=== PATIENT | female | born 1935 ===

== ENCOUNTER 2021-05-24 11:30 | Inpatient (IN) | payer OTHER ==
[~2021-05-24] VITALS: Ht 149.9 cm; Wt 49.0 kg
[2021-05-24] MEDS ORDERED: XALATAN (15:23)
[2021-05-24] MEDS ORDERED: OMEPRAZOLE MAGN20 MG PO (15:23)
[2021-05-24] MEDS ORDERED: D3 + K2 DOTS 11 EACH PO (15:24)
[2021-05-24] MEDS ORDERED: NORVASC2.5 M1 PO (15:24)
[2021-05-27] MEDS ORDERED: LATANOPROST2.5 ML OP (08:13)
[2021-05-27] MEDS ORDERED: REFRESH OPTIVE10 ML (08:14)
[2021-05-29] MEDS ORDERED: INTESTINEX680 M1 PO (12:10)
[2021-05-29] MEDS ORDERED: HYOSCYAMINE0.125 M1 SL (12:10)
[2021-05-29] MEDS ORDERED: ULTRACET PO (12:11)
== END 2021-05-29 16:10 | disposition home or self-care (01) | DRG 331 ==
LOC: SURG 05-26 08:08 → O/R 05-26 08:08 → SURH 05-26 10:45 → SURG 05-26 15:26
PROVIDERS: ADMIT Surgery; ATTEND Surgery
PROC: 07BD0ZX Excision of Aortic Lymphatic, Open Approach, Diagnostic (ICD-10-PCS; 2021-05-26)
PROC: 0DTF0ZZ Resection of Right Large Intestine, Open Approach (ICD-10-PCS; principal; 2021-05-26 10:45)
DX: D12.0 Benign neoplasm of cecum (principal); E87.6 Hypokalemia; R59.0 Localized enlarged lymph nodes; E83.39 Other disorders of phosphorus metabolism; Z20.822 Contact with and (suspected) exposure to COVID-19